=== PATIENT | male | born 1965 | race Caucasian/White ===

== ENCOUNTER 2022-10-14 16:08 | Emergency (ER) | payer OTHER, SELFPAY ==
[2022-10-14 16:23] VITALS: BP 124/82; PULSE 98; RESP 16; TEMP 36.9; O2SAT 99
--- NOTE | 2022-10-14 16:39 | ED.EYEPROB ---
HPI - Eye Problem General Chief complaint: Eye Problems Stated complaint: SINUS CONGESITON/EYE DISCHARGE/EARS CLOGGED Time Seen by Provider: 10/14/22 16:28 Source: patient Mode of arrival: ambulatory Limitations: no limitations History of Present Illness HPI Narrative: Travis is a 57-year-old male patient presenting to the clinic today with complaints of sinus congestion, discharge coming from the right eye, and feeling as though his ears are been clogged. He denies any fever chills. He states that he has had the symptoms since September 07 when he tested for COVID and influenza. He noticed just today or to that he had some discharge coming from the right eye and his thinks that he may have pinkeye. Related Data Allergies Allergy/AdvReac Type Severity Reaction Status Date / Time No Known Allergies Allergy Unknown Verified 10/14/22 16:21 Review of Systems Review of Systems: Pertinent positives per HPI. Patient denies any fever, chills, rash, headache, visual changes, dizziness, shortness of breath, chest pain, palpitations, nausea, vomiting, diarrhea, constipation, abdominal pain, or any urinary issues. 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 There is no relevant family history pertinent to the patient complaint. Exam Narrative: General: Well-developed, well nourished, in no apparent distress Head: Normocephalic, atraumatic Eyes: Pupils equally round and reactive to light bilaterally, EOM intact, left sclera and conjunctive clear, right sclera and conjunctiva injected with yellow mucopurulent discharge, lids normal Ears: TMs intact and clear, ear canals clear, no drainage, grossly hearing normal. Nose: Nares patent, green nasal discharge, moderate inflammation, maxillary and frontal sinus tenderness. Mouth: Oral pharynx without lesions or masses, good dentition, MMM. Oropharynx red, postnasal drip Neck: Supple, trachea midline, no enlargement of anterior or posterior cervical nodes, no thyroid masses or goiter palpable. Cardio: Regular rate and rhythm, s1 and s2 normal, no murmur appreciated. Resp: Clear to auscultation bilaterally, no rhonchi, rales, wheezing or rubs Course Course Emergency Course: Portions of this record may have been created with voice recognition software. Level of Care: Express Care Visit Vital Signs Vital signs: Vital Signs Temperature 36.9 C 10/14/22 16:23 Pulse Rate 98 10/14/22 16:23 Respiratory Rate 16 10/14/22 16:23 Blood Pressure 124/82 10/14/22 16:23 Pulse Oximetry 99 10/14/22 16:23 Temperature 36.9 C 10/14/22 16:23 Pulse Rate 98 10/14/22 16:23 Respiratory Rate 16 10/14/22 16:23 Blood Pressure 124/82 10/14/22 16:23 Pulse Oximetry 99 10/14/22 16:23 Vital signs reviewed MDM - Eye Problem MDM Narrative Medical decision making narrative: At the time of visit patient is resting comfortably on the exam table. I suspect that he has a bacterial rhinosinusitis as well as right-sided conjunctivitis. Prescription for TobraDex, prednisone, and Augmentin was sent to the pharmacy. Supportive measures were discussed
== END 2022-10-14 16:48 | disposition home or self-care (01) ==
PROVIDERS: Emergency Provider Nurse Practitioner Family; PCP Family Medicine
DX: J01.90 Acute sinusitis, unspecified (principal); H10.9 Unspecified conjunctivitis; M17.12 Unilateral primary osteoarthritis, left knee
CPT/HCPCS: 99213; G0463

== ENCOUNTER 2022-11-22 14:34 | Emergency (ER) | payer OTHER, SELFPAY ==
[2022-11-22 14:41] VITALS: BP 115/79; PULSE 79; RESP 16; TEMP 36.6; O2SAT 100
--- NOTE | 2022-11-22 14:45 | ED.URI ---
HPI - URI/Sore Throat General Chief Complaint: Upper Respiratory Infection Stated Complaint: sore throat, sinus drainage in ears Time Seen by Provider: 11/22/22 14:45 Source: patient and RN notes reviewed History of Present Illness HPI Narrative: 57 yo M presents to ED with complaints of congestion, PEREZ, sore throat, and cough since this past weekend. Pt states he also has bilateral ear pain and pressure in his head. States his sore throat is worse in the morning and will subside some throughout the day. Pt states he was here last month for similiar symptoms and given an antibiotic with good relief. Pt denies any fevers, chills, N/V/D, chest pain, or SOB. Pt has taken IBU for his sore throat with moderate relief. Related Data Allergies Allergy/AdvReac Type Severity Reaction Status Date / Time No Known Allergies Allergy Unknown Verified 10/14/22 16:21 Review of Systems Review of Systems: CONSTITUTIONAL: Denies fever, chills, or sweats. EYES: Denies visual changes, redness, or discharge. ENT: Reports otalgia and sore throat CARDIOVASCULAR: Denies chest pain, palpitations, or edema. RESPIRATORY: Reports slight, productive, cough GASTROINTESTINAL: Denies abdominal pain, nausea, vomiting, or diarrhea. GENITOURINARY: Denies dysuria or hematuria. SKIN: Denies rash or itching. MUSCULOSKELETAL: Denies back pain, joint pain, or myalgia. NEUROLOGIC: Reports headache. 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 There is no relevant family history pertinent to the patient complaint. Exam Narrative: GENERAL: This is a well-nourished, well-developed patient, in no apparent distress. HEAD: normocephalic, atraumatic. EYES: PERRL. Sclera clear/white. Vision is grossly intact. EARS: External ears normal, auditory canals clear and without drainage, TMs normal without perforation. Hearing grossly intact. NOSE: External nose normal with no obvious nasal discharge, nares without redness, no rhinorrhea. THROAT: Mucous membranes moist, posterior pharynx clear. NECK: anterior, bilateral, cervical lymphadenopathy. CARDIOVASCULAR: Regular rate and rhythm without murmurs, gallops, or rubs. RESPIRATORY: Clear to auscultation. Breath sounds equal bilaterally. No wheezes, rales, or rhonchi. GASTROINTESTINAL: Abdomen soft, non-tender, nondistended. Bowel sounds are active. No hepato-splenomegaly, or palpable masses. No guarding. SKIN: warm, intact with no suspicious lesions or rash, good texture and turgor. NEURO: awake, alert, and oriented to person, place and time. There were no obvious focal neurologic abnormalities. Course Course Level of Care: Express Care Visit Vital Signs Vital signs: Vital Signs Temperature 97.9 F 11/22/22 14:41 Pulse Rate 79 11/22/22 14:41 Respiratory Rate 16 11/22/22 14:41 Blood Pressure 115/79 11/22/22 14:41 Pulse Oximetry 100 11/22/22 14:41 Temperature 97.9 F 11/22/22 14:41 Pulse Rate 79 11/22/22 14:41 Respiratory Rate 16 11/22/22 14:41 Blood Pressure 115/79 11/22/22 14:41 Pulse Oximetry
== END 2022-11-22 15:12 | disposition home or self-care (01) ==
PROVIDERS: Emergency Provider Nurse Practitioner Family; PCP Family Medicine
DX: B34.9 Viral infection, unspecified (principal); M17.12 Unilateral primary osteoarthritis, left knee
CPT/HCPCS: 87081; 87880; 99213; G0463

== ENCOUNTER 2022-11-25 09:56 | Emergency (ER) | payer OTHER, SELFPAY ==
[2022-11-25 10:08] VITALS: BP 124/88; PULSE 99; RESP 16; TEMP 37.2; O2SAT 98
--- NOTE | 2022-11-25 10:30 | ED.URI ---
HPI - URI/Sore Throat General Chief Complaint: Upper Respiratory Infection Stated Complaint: SORE THROAT/SINUS PRESSURE/EARACHE Time Seen by Provider: 11/25/22 10:21 Source: patient Mode of arrival: ambulatory Limitations: no limitations History of Present Illness HPI Narrative: Patient presents today complaining of a one-week history of sore throat that has been worsening since onset, with a 3-4 day history of sinus pressure, ear pressure, headache, dry cough, postnasal drip. Currently rates his pain 7/10 and states his sore throat has been keeping him awake at night. He has been taking Mucinex and ibuprofen with mild relief. Patient was seen here at the urgent care 3 days ago and diagnosed with a viral infection. His strep test at that time was negative and his subsequent culture was also negative. He was given a prescription for Flonase which he states he has been using without relief. Related Data Allergies Allergy/AdvReac Type Severity Reaction Status Date / Time No Known Allergies Allergy Unknown Verified 11/25/22 10:19 Review of Systems Review of Systems: CONSTITUTIONAL: Denies body aches, fever, chills, or sweats. EYES: Denies visual changes, redness, or discharge. ENT: Denies rhinorrhea. + sore throat, sinus pressure, ear pressure, postnasal drip CARDIOVASCULAR: Denies chest pain, palpitations, or edema. RESPIRATORY: Denies dyspnea.+ cough GASTROINTESTINAL: Denies abdominal pain, nausea, vomiting, or diarrhea. GENITOURINARY: Denies dysuria or hematuria. SKIN: Denies rash, itching, or wounds. MUSCULOSKELETAL: Denies back pain, joint pain, or myalgia. NEUROLOGIC: Denies numbness, tingling, or weakness.+ headache PSYCH: Denies depression or anxiety. 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 Please see nursing chart for further information. There is no relevant family history pertinent to the presenting complaint Exam Narrative: GENERAL: Well-appearing, well-nourished, and in no acute distress. HEAD: Normocephalic, atraumatic. EYES: EOMI. No redness or drainage. Conjunctivae normal. ENT: Mucous membranes pink and moist. Nares clear. No rhinorrhea. TMs normal bilaterally. Throat mildly erythematous without edema or exudate. Uvula midline. Nontender frontal and maxillary sinuses. NECK: Normal AROM. Supple. No lymphadenopathy. CHEST: No respiratory distress. Clear to auscultation. HEART: Regular rate and rhythm. No murmur appreciated. Normal peripheral pulses. EXTREMITIES: Normal range of motion. No edema. SKIN: Warm, dry, no rash. Capillary refill normal. Normal skin turgor. NEURO: No focal deficits. Alert and oriented x3. Gait steady. PSYCH: Normal affect. No signs of depression or anxiety. Course Course Level of Care: Express Care Visit Vital Signs Vital signs: Vital Signs Temperature 99 F 11/25/22 10:08 Pulse Rate 99 11/25/22 10:08 Respiratory Rate 16 11/25/22 10:08 Blood Pressure 124/88 11/25/22 10:08 Pulse Oximetry 98 11/25/22 10:08 Temperature 99 F 11/25/22 1
== END 2022-11-25 10:35 | disposition home or self-care (01) ==
PROVIDERS: Emergency Provider Nurse Practitioner; PCP Family Medicine
DX: J06.9 Acute upper respiratory infection, unspecified (principal); M17.12 Unilateral primary osteoarthritis, left knee
CPT/HCPCS: 99213; G0463

== ENCOUNTER 2022-11-28 14:36 | Emergency (ER) | payer OTHER, SELFPAY ==
--- NOTE | 2022-11-28 14:38 | ED.URI ---
HPI - URI/Sore Throat General Chief Complaint: Upper Respiratory Infection Stated Complaint: COUGH/SINUS CONGESTION Time Seen by Provider: 11/28/22 14:38 Source: patient Mode of arrival: ambulatory Limitations: no limitations History of Present Illness HPI Narrative: Travis is a 57-year-old male patient presenting to the clinic today with complaints of cough and sinus congestion. He reports his symptoms have gotten worse over the last week but states that when he was treated for sinus infection back in August he felt like it never fully went away. He has been seen twice in the clinic this week for this complaint. He denies any fever or chills but does have sinus headaches. Reports that the prednisone and Sudafed has helped with his sore throat however, he still has a lot of the sinus congestion, drainage, and discomfort. States he is blowing out hunks of green nasal drainage and has a foul taste in his mouth. MD elicited complaint: cough, sore throat, rhinorrhea, nasal congestion and sinus pain Related Data Allergies Allergy/AdvReac Type Severity Reaction Status Date / Time No Known Allergies Allergy Unknown Verified 11/25/22 10:19 Review of Systems Review of Systems: Pertinent positives per HPI. Patient denies any fever, chills, rash, headache, visual changes, dizziness, shortness of breath, chest pain, palpitations, nausea, vomiting, diarrhea, constipation, abdominal pain, or any urinary issues. 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 There is no relevant family history pertinent to the patient complaint. Exam Narrative: General: Well-developed, well nourished, in no apparent distress Head: Normocephalic, atraumatic Eyes: Pupils equally round and reactive to light bilaterally, EOM intact, sclera and conjunctive clear, no discharge, lids normal Ears: TMs intact and clear, ear canals clear, no drainage, grossly hearing normal. Nose: Nares patent, green nasal discharge, moderate inflammation with white straei in the right posterior turbinate, ethmoid and maxillary sinus tenderness right greater than left. Mouth: Oral pharynx without lesions or masses, good dentition, MMM. Postnasal drip Neck: Supple, trachea midline, no enlargement of anterior or posterior cervical nodes, no thyroid masses or goiter palpable. Cardio: Regular rate and rhythm, s1 and s2 normal, no murmur appreciated. Resp: Clear to auscultation bilaterally, no rhonchi, rales, wheezing or rubs Course Course Emergency Course: Portions of this record may have been created with voice recognition software. Level of Care: Express Care Visit Vital Signs Vital signs: Vital signs reviewed MDM - URI/Sore Throat MDM Narrative Medical decision making narrative: At the time of visit patient is resting comfortably on the exam table. I suspect patient has recurrence rhinosinusitis. Prescription for doxycycline was sent to the pharmacy and supportive measures were discussed with the patient and he voiced understanding of discharge instructions. ENT referral
[2022-11-28 14:45] VITALS: BP 116/79; PULSE 88; RESP 16; TEMP 36.9; O2SAT 96
[2022-11-28 14:47] VITALS: BP 116/79; PULSE 88; RESP 16; TEMP 36.9; O2SAT 96
== END 2022-11-28 15:06 | disposition home or self-care (01) ==
PROVIDERS: Emergency Provider Nurse Practitioner Family; PCP Family Medicine
DX: J32.9 Chronic sinusitis, unspecified (principal); M17.12 Unilateral primary osteoarthritis, left knee
CPT/HCPCS: 99213; G0463